=== PATIENT | male | born 1955 | race African-American/Black ===

== ENCOUNTER 2017-07-02 07:54 | Day surgery (SDC) | payer OTHER ==
[2017-07-02 08:10] VITALS: BMI 41.6
[2017-07-02] MEDS ORDERED: LIDOCAINE HCL/PF 2% SDV 5ML VIAL ONE (08:37)
[2017-07-02] MEDS ORDERED: PROPOFOL 20 ML ONE ×2 (08:37)
[2017-07-02 10:04] VITALS: BP 130/82; PULSE 66; TEMP 98
--- NOTE | 2017-07-04 10:39 | PATH ---
Surgical Pathology Report Patient Name: MIRA CARUSO [facility]. Rec. #: [id number] /Age/Gender: 1955 (Age: 61) / M Account: [id number] Location: [facility]-ENDOSCOPY Taken: 07/02/2017 Received: 07/02/2017 Reported: 07/04/2017 Physicians: Manuel Marcos M.D. Specimen(s) Received HEPATIC FLEXURE POLYP Clinical History Preoperative diagnosis: History of polyps Postoperative diagnosis: Diverticulosis, polyp Final Diagnosis COLON, HEPATIC FLEXURE, POLYPECTOMY: TUBULAR ADENOMA. Comment: Recommend correlation with clinical findings and follow up as clinically indicated. Electronically Signed Steve Michaud M.D. Gross Description Received in formalin, labeled "hepatic flexure polyp" is a watkins, irregular portion of soft tissue measuring 0.2 cm. in greatest dimension. The specimen is submitted in toto in one cassette. 07/03/201707/03/2017
== END 2017-07-02 10:06 | disposition home or self-care (01) ==
LOC: FASU-ENDO 07:54
PROVIDERS: ATTEND Internal Medicine Gastroenterology
PROC: 0DBL8ZX Excision of Transverse Colon, Via Natural or Artificial Opening Endoscopic, Diagnostic (ICD-10-PCS; principal; 2017-07-02 08:00)
DX: Z86.010 Personal history of colon polyps (principal); K63.5 Polyp of colon; K57.30 Diverticulosis of large intestine without perforation or abscess without bleeding
CPT/HCPCS: 88305-TC